=== PATIENT | male | born 1935 | race Caucasian/White ===

== ENCOUNTER 2017-02-27 10:10 | Outpatient (CLI) | payer OTHER ==
--- NOTE | 2017-02-27 15:46 | DIAGNOSTIC IMAGING REPORT ---
PROCEDURE: XR UPPER GI WITH AIR INDICATION: ANEMIA TECHNIQUE: Real time fluoroscopy was used on the upper GI system. Total fluoro time 4.4 minutes. Cumulative dose 2939.85 mGy 123 images obtained including cine imaging and last image hold screen capture images. COMPARISON: None. FINDINGS: Slightly suboptimal study secondary to the patient's inability to stand up or position. The swallowing mechanism demonstrates deep penetration, some contrast resting on the vocal cords, and silent aspiration. Moderate to significant tertiary contractions throughout the esophagus, particularly pronounced in the mid to distal esophagus. This results in a occasional moderate intraesophageal reflux. No fixed strictures. No fixed irregularities or suspicious masses. Very small hiatal hernia. In the recumbent position, there was moderate inducible gastroesophageal reflux and lack of normal secondary stripping wave. Evaluation the proximal stomach was suboptimal secondary to under distention. There is a questionable small focus of ulceration in the proximal to mid stomach , measuring about 4 mm along the greater curvature. The distal stomach was better evaluated and mucosal pattern appears normal. No evidence of ulceration. There was prompt gastric emptying and the duodenum and proximal jejunal loops appear normal. IMPRESSION: 1. Questionable small focus of ulceration along the greater curvature of the proximal to mid stomach. This could also be artifact secondary to under distention of the proximal stomach. 2. With swallowing, there is deep laryngeal penetration and silent aspiration. 3. Moderate to significant tertiary contractions throughout the esophagus but no fixed esophageal irregularity. 4. Moderate gastroesophageal reflux and occasional intraesophageal reflux secondary to the diffuse esophageal spasm.
== END 2017-02-27 23:00 ==
LOC: XR SRH 10:10
DX: D64.9 Anemia, unspecified (principal); K21.9 Gastro-esophageal reflux disease without esophagitis; K22.4 Dyskinesia of esophagus